=== PATIENT | female | born 1960 | race Caucasian/White ===

== ENCOUNTER → 2018-06-21 | Outpatient (CLI) | payer OTHER ==
[~2018-06-21] MED LIST: METHACHOLINE KIT (J7674) INH ONE
--- NOTE | 2018-06-21 14:28 | PFTRPT ---
Site: [facility], [address] [place], [address] ID: [id number] Name: DEDRICK VAZ Visit Date: 06/21/2018 Second ID: [id number] Referring Doctor: Denisha DANIELS, Birgit Casas Reviewing Doctor: Vikas Boswell MD Cosmetic Counselor: Stefania MATIAS, CARMELA Age: 57 : 1960 Sex: Female Race: Height: 68.50 Inches Weight: 215.00 Lbs BSA: 2.12 Order IDs: [id number] Requested Test(s): <RESP-PFT.BROCHOPROV> Diagnosis: R05 of albuterol for postbronchodilator. Review Status: Not Reviewed Pre-Bronch Post-Bronch Pred Actual %Pred Actual %Chng SPIROMETRY FVC (L) 3.98 3.36 84 3.33 FEV1 (L) 3.11 2.39 76 2.51 4 FEV1/FVC (%) 79 71 90 75 5 FEF 25% (L/sec) 5.55 4.14 74 4.69 13 FEF 50% (L/sec) 3.75 2.20 58 2.57 17 FEF 75% (L/sec) 1.31 0.72 54 0.83 16 FEF 25-75% (L/sec) 2.80 1.70 60 1.95 14 FEF Max (L/sec) 7.22 5.47 75 5.50 FIVC (L) 3.33 2.92 -12 FIF 50% (L/sec) 3.93 4.47 113 4.15 -7 FIF Max (L/sec) 4.47 4.15 -7 Expiratory Time (sec) 7.01 5.95 -15 Back Extrap Vol (L) 0.09 0.10 12 Time To FEFmax (sec) 0.086 0.088 1
--- NOTE | 2018-06-21 14:29 | PFTRPT ---
Site: [facility], [address] [place] [address], [id number] ID: [id number] Name: DEDRICK VAZ Visit Date: 06/21/2018 Second ID: [id number] Referring Doctor: Birgit Denny MD Reviewing Doctor: Viaks Boswell MD Gear Tooth Grinding Machine Operator: Stefania MATIAS RRT Age: 57 : 1960 Sex: Female Race: Height: 68.50 Inches Weight: 215.00 Lbs BSA: 2.12 Order IDs: [id number] Requested Test(s): <RESP-PFT.DLCO> Diagnosis: R06.02 test meet the ATS standards for acceptability and repeatability. Review Status: Not Reviewed Pre-Bronch Post-Bronch Pred Actual %Pred Actual %Chng SPIROMETRY FVC (L) 3.98 3.25 81 FEV1 (L) 3.11 2.40 77 FEV1/FVC (%) 79 74 93 FEF 25% (L/sec) 5.55 4.55 81 FEF 50% (L/sec) 3.75 2.33 62 FEF 75% (L/sec) 1.31 0.71 54 FEF 25-75% (L/sec) 2.80 1.81 64 FEF Max (L/sec) 7.22 6.04 83 FIVC (L) 3.22 FIF 50% (L/sec) 3.93 4.77 121 FIF Max (L/sec) 4.79 MVV (L/min) 103 89 85 Expiratory Time (sec) 6.54 Back Extrap Vol (L) 0.08 Time To FEFmax (sec) 0.078 LUNG VOLUMES SVC (L) 3.60 3.38 93 IC (L) 2.48 2.42 97 ERV (L) 1.12 0.96 85 TGV (L) 3.25 3.20 98 RV (Pleth) (L) 2.13 2.24 105 TLC (Pleth) (L) 5.73 5.62 98 RV/TLC (Pleth) (%) 38 40 104 DIFFUSION DLCOunc (ml/min/mmHg) 23.93 25.62 107 DLCOcor (ml/min/mmHg) 23.93 25.86 108 DL/VA (ml/min/mmHg/L) 4.18 4.85 116 VA (L) 5.73 5.33 93 BHT (sec) 10.01 IVC (L) 3.17 TLC (SB) (L) 5.48 AIRWAYS RESISTANCE Raw (cmH2O/L/s) 1.86 2.73 146 Gaw (L/s/cmH2O) 1.03 0.37 35 sRaw (cmH2O*s) 4.76 9.06 190 sGaw (1/cmH2O*s) 0.20 0.11 55 BLOOD GASES Hgb (gm/dL) 13.1
== END ==
LOC: M CARPUL 09:07
PROVIDERS: ATTEND Internal Medicine Pulmonary Disease
DX: R05 Cough (principal); R06.2 Wheezing
CPT/HCPCS: 36415; 85018; 94010; 94070; 94726; 94729; J7674